=== PATIENT | male | born 1985 | race Caucasian/White ===

== ENCOUNTER 2016-12-07 12:19 | Emergency (ER) | payer MEDICARE, OTHER ==
[~2016-12-07] VITALS: Ht 180.3 cm; Wt 104.3 kg
[~2016-12-07 12:19] MED LIST: ABILIFY MAINTE300 MG IM; ABILIFY10 MG PO; BACTRIM DS TAB1 EACH PO; BENADRYL ALLERG25 MG PO; CITALOPRAM HBR20 MG PO; DAYPRO600 MG PO; DEPAKOTE500 MG PO; DIVALPROEX SOD250 MG PO; DIVALPROEX SOD500 MG PO; DOXYCYCLINE HY100 MG PO; FLUOXETINE HCL20 MG PO; KEFLEX500 MG PO; LORAZEPAM2 MG PO; NAPROXEN500 MG PO; OLANZAPINE ODT15 MG PO; OLANZAPINE ODT20 MG PO; OLANZAPINE10 MG PO; OLANZAPINE20 MG PO; SEROQUEL XR150 MG PO; VIIBRYD40 MG PO; WELLBUTRIN SR100 MG PO; ZYPREXA15 MG PO
[2016-12-07] MEDS ORDERED: HYDROXYZINE HCL50 MG PO (12:37)
[2016-12-07] MEDS ORDERED: ABILIFY MAINTE300 M1 IM (12:37)
[2016-12-07] MEDS ORDERED: SERTRALINE HCL100 MG PO (12:37)
[2016-12-07] MEDS ORDERED: ZOLOFT100 MG PO (12:38)
== END 2016-12-07 14:15 | disposition home or self-care (01) ==
LOC: ED 12:19
DX: F41.9 Anxiety disorder, unspecified (principal); F31.9 Bipolar disorder, unspecified; F43.10 Post-traumatic stress disorder, unspecified; F17.200 Nicotine dependence, unspecified, uncomplicated; Z88.0 Allergy status to penicillin; Z79.899 Other long term (current) drug therapy
CPT/HCPCS: 71010; 81001; 99283

== ENCOUNTER 2016-12-16 19:57 | Emergency (ER) | payer MEDICARE, OTHER ==
[~2016-12-16] VITALS: Ht 180.3 cm; Wt 104.3 kg
[~2016-12-16 19:57] MED LIST changes: +ABILIFY MAINTE300 M1 IM; +HYDROXYZINE HCL50 MG PO; +SERTRALINE HCL100 MG PO; +ZOLOFT100 MG PO
== END 2016-12-16 20:38 | disposition home or self-care (01) ==
LOC: ED 19:57
DX: F19.10 Other psychoactive substance abuse, uncomplicated (principal); F31.9 Bipolar disorder, unspecified; F20.9 Schizophrenia, unspecified; F17.200 Nicotine dependence, unspecified, uncomplicated; Z88.0 Allergy status to penicillin; Z88.8 Allergy status to other drugs, medicaments and biological substances
CPT/HCPCS: 99283

== ENCOUNTER → 2017-01-11 | Emergency (ER) | payer MEDICARE, OTHER ==
[~2017-01-11] VITALS: Ht 180.3 cm; Wt 104.3 kg
== END ==
LOC: ED 12:57
DX: M54.5 Low back pain (principal); M54.6 Pain in thoracic spine; F15.10 Other stimulant abuse, uncomplicated; Z00.8 Encounter for other general examination; F31.9 Bipolar disorder, unspecified; F20.9 Schizophrenia, unspecified; F17.200 Nicotine dependence, unspecified, uncomplicated; Z88.0 Allergy status to penicillin; Z79.899 Other long term (current) drug therapy
CPT/HCPCS: 99283